=== PATIENT | male | born 1955 | race Hispanic/Latino ===

== ENCOUNTER 2019-12-10 11:39 | Emergency (ER) | payer MEDICARE ==
--- NOTE | 2019-12-10 12:02 | CT ---
CT HEAD WITHOUT IV CONTRAST COMPARISON: 07/04/2015 HISTORY: Right facial droop. TECHNIQUE: Axial CT imaging at 5 mm intervals from vertex through skull base without contrast FINDINGS: Small focus of diminished attenuation is seen in the right thalamus related to a tiny lacunar infarct ion of indeterminate age. There is no evidence of an acute cortical infarction, hemorrhage, mass effect, or midline shift. Mild cerebral volume loss is present. The ventricular system is normal in s ize, shape, and position. Vascular calcifications are seen in the distal vertebral arteries and in the carotid siphons. Visualized paranasal sinuses are clear. Osseous structures appear intact. IMPRESSION: 1. 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 No acute cortical infarction or hem orrhage is seen. 2. Above findings discussed with Dr. Harvey in the emergency department on 12/10/2019 at 1156 hours.
[2019-12-10 12:13] LABS: Hemoglobin 15.6 g/dL (14.0-18.0); Mean Corpuscular HGB CONC 32.3 g/dL (32.0-36.0); Mean Corpuscular Hemoglobin 29.1 pg (27.0-31.0); Mean Platelet Volume 10.4 fL (7.4-10.4); Platelet Count 102 thou/uL (130-400); RBC Distribution Width 11.6 % (11.5-14.5); Red Blood Cell (RBC) Count 5.37 mill/uL (4.70-6.10); White Blood Cell (WBC) Count 7.8 thou/uL (4.8-10.8)
[2019-12-10 12:21] LABS: ALT (SGPT) 38 U/L (8-55); AST (SGOT) 43 U/L (5-34); Albumin 3.4 g/dL (3.4-4.8); Alkaline Phosphatase 81 U/L (40-110); Anion Gap 15 mmol/L (10-20); BUN (Urea Nitrogen) 13 mg/dL (8.4-25.7); Bilirubin, Total 0.6 mg/dL (0.2-1.2); Calc. Creatinine Clearance 0 mL/min (70-130); Calcium 8.6 mg/dL (7.8-10.44); Carbon Dioxide 27 mmol/L (23-31); Chloride 103 mmol/L (98-107); Estimated GFR-MDRD 78; Globulin 2.9 g/dL (2.4-3.5); Glucose 359 mg/dL (80-115); Potassium 4.1 mmol/L (3.5-5.1); Protein, Total 6.3 g/dL (5.8-8.1); Sodium 141 mmol/L (136-145)
[2019-12-10 12:32] LABS: #Basophils 0.1 thou/uL (0.0-0.2); #Eosinphils 0.3 thou/uL (0.0-0.7); #Lymphocytes 1.6 thou/uL (1.20-3.40); #Monocytes 0.6 thou/uL (0.11-0.59); #Neutrophils 5.2 thou/uL (1.40-6.50); %Basophils 1.6 % (0.0-1.0); %Eosinophils 3.3 % (0.0-10.0); %Lymphocytes 20.7 % (21.0-51.0); %Monocytes 7.5 % (0.0-10.0); %Neutrophils 66.9 % (42.0-75.0); Giant Platelets SLIGHT; Large Platelets SLIGHT; MDiff Complete? YES; Platelet Morphology Comment Appears Decreased
[2019-12-10] MEDS ORDERED: Aspirin Chewable 81 MG TAB ONE (13:01)
[2019-12-10 13:09] LABS: Bilirubin Negative (Negative); Blood, Urine Negative (Negative); Clarity Clear (Clear); Glucose, Urine (Dipstick) 500 mg/dL (Negative); Ketone, Urine Negative (Negative); Leukocyte Negative (Negative); Nitrite Negative (Negative); Protein, Urine (Dipstick) Negative (Neg-Trace); Urobilinogen 0.2 mg/dL (Less than 2)
--- NOTE | 2019-12-10 15:30 | CT ---
EXAM: CT ANGIOGRAM OF THE HEAD AND NECK INDICATION: Right facial droop. COMPARISON: None TECHNIQUE: CT angiogram of the head and neck are performed in the axial plane. Three-dimensional refo rmatted images are submitted for interpretation. FINDINGS: Note, examination was performed at 12:12 PM on 12/10/2019. Per Dr. Zee, examination is requested for interpretation at 3:20 PM on 12/10/2019 CTA OF THE HEAD WITH AND WITHOUT CONTRAST: POSTCONTRAST CT OF BRAIN: Pathologic enhancement: No pathologic enhancement the brain. Postcontrast soft tissue neck CT: Aerodigestive tract:Aerodigestive tract is patent. No mucosal abnormality. Sinuses: Adequate aeration of the sinuses and mastoid air cells. Orbits: Bilateral ocular lenses are appropriately located. Both globes are intact. Retrobulbar fat is preserved. Symmetric attenuation the optic nerves and ocular rectus muscles. Salivary glands:Appropriate attenuation Thyroid gland: Appropriate attenuation Lymph nodes: No evidence of lymphadenopathy by size criteria. Paraspinal muscles: Symmetric attenuation of the sternocleidomastoid muscles. Appropriate attenuation of the paraspinal muscles. Cervical spine:There are varying degrees of loss of disc space height and osteophyte formation throug hout the cervical spine. Moderate changes at C6-C7 and C7-T1. Mild to moderate degenerative changes at C5-C6. Central spinal canal and neural foramina demonstrate stenosis secondary to degenerative dis c disease. Technique limits evaluation. There is at least moderate central canal stenosis at C5-C6, C6-C7. Upper mediastinum and lung apices: Nonspecific groundglass opacities. CTA OF THE NECK WITH CONTRAST: Aorta: Appropriate enhancement and luminal diameter. Right carotid artery: Appropriate enhancement and luminal diameter of the origin of the right carotid artery, innominate artery, carotid bifurcation and internal carotid artery. There is calcified plaque in the right carotid bifurcation. No significant stenosis based upon NASCET criteria. Left carotid: Appropriate enhancement and luminal diameter of the origin of the left carotid artery, common carotid artery, carotid bifurcation and internal carotid artery. No significant stenosis based upon NASCET criteria. Subclavian arteries:Symmetric and patent. Vertebral arteries:Patent throughout their course in the neck. Dominant left vertebral artery. CTA OF THE BRAIN: Intracranial internal carotid arteries:Appropriate enhancement and luminal diameter. Atherosclerosis in bilateral paraclinoid segments. Anterior circulation: Appropriate enhancement and luminal diameter of the A1 segments, proximal A2 se gments, bilateral M1 segments and proximal MCA branches. Intracranial vertebral arteries: Patent. Limited evaluation of both PICA artery origins. Posterior circulation: Both vertebral arteries supply normal caliber basilar artery. Bilateral poultry raiser h ave a origin. IMPRESSION: No hemodynamically significant stenosis, occlusion or aneurysmal formation. Results of study discussed with Dr. Zee on 12/10/2019 at 3:28 PM Code CR Transcribed Date/Time: 12/10/2019 3:41 PM
[2019-12-10] MEDS ORDERED: Iopamidol 370 76% 100 ML VIAL ONE (16:04)
--- NOTE | 2019-12-10 18:00 | RAD ---
PORTABLE CHEST: 12/10/19 Comparison is made with the 08/14/18 study. Elevation of the right hemidiaphragm is chronic. The heart is normal in size. Some linear streaking in the right base is probably atelectasis. The lungs are oth erwise clear. The trachea is midline. IMPRESSION: No acute findings of concern. POS: HOME
== END 2019-12-10 14:06 | disposition short-term general hospital (02) ==
LOC: BURERS 11:39
DX: R29.810 Facial weakness (principal); E11.9 Type 2 diabetes mellitus without complications; E78.5 Hyperlipidemia, unspecified; E78.00 Pure hypercholesterolemia, unspecified; I10 Essential (primary) hypertension; F41.9 Anxiety disorder, unspecified; Z79.899 Other long term (current) drug therapy; Z79.84 Long term (current) use of oral hypoglycemic drugs; Z86.73 Personal history of transient ischemic attack (TIA), and cerebral infarction without residual deficits
CPT/HCPCS: 0042T; 36416; 70450; 70496; 70498; 71045; 80053; 81003; 83880; 84484; 85025; 93005; 94760; Q9967